=== PATIENT | female | born 1965 | race Caucasian/White ===

== ENCOUNTER → 2023-11-18 09:13 | Outpatient (REF) | payer OTHER, SELFPAY | LOC: HWRCS 09:13 | PROVIDERS: ATTENDING PHYSICIAN Nuclear Medicine Nuclear Cardiology; FAMILY PHYSICIAN Registered Nurse | DX: E78.2 Mixed hyperlipidemia (principal); R00.2 Palpitations; I07.1 Rheumatic tricuspid insufficiency | CPT/HCPCS: 93306 ==

== ENCOUNTER → 2024-08-12 14:50 | Outpatient (REF) | payer OTHER, SELFPAY | LOC: HWRCS 14:50 | PROVIDERS: ATTENDING PHYSICIAN Nuclear Medicine Nuclear Cardiology; FAMILY PHYSICIAN Registered Nurse | DX: R00.2 Palpitations (principal); I36.1 Nonrheumatic tricuspid (valve) insufficiency; R07.89 Other chest pain; I31.39 Other pericardial effusion (noninflammatory); I49.3 Ventricular premature depolarization | CPT/HCPCS: 93306 ==

== ENCOUNTER → 2024-08-28 12:59 | Outpatient (REF) | payer OTHER, SELFPAY | LOC: RCS 12:59 | PROVIDERS: ATTENDING PHYSICIAN Nuclear Medicine Nuclear Cardiology; FAMILY PHYSICIAN Registered Nurse | DX: R00.2 Palpitations (principal); I36.1 Nonrheumatic tricuspid (valve) insufficiency; R07.89 Other chest pain; I31.39 Other pericardial effusion (noninflammatory); I49.3 Ventricular premature depolarization | CPT/HCPCS: 93017; 93350 ==

== ENCOUNTER → 2024-11-13 12:49 | Outpatient (REF) | payer OTHER, SELFPAY | LOC: HWRAD 12:49 | PROVIDERS: ATTENDING PHYSICIAN Internal Medicine Rheumatology; FAMILY PHYSICIAN Registered Nurse | DX: M81.0 Age-related osteoporosis without current pathological fracture (principal) | CPT/HCPCS: 77080 ==